=== PATIENT | male | born 1935 | race Caucasian/White ===

== ENCOUNTER 2016-10-12 07:53 | Day surgery (SDC) | payer OTHER ==
[~2016-10-12 07:53] MED LIST: ACETAMINOPHEN500 MG PO; ASPIRIN EC81 MG; ATORVASTATIN CA40 MG PO; CALCIUM 600 PO; CALCIUM600 M3; CENTRUM SILVER PO; HYCET1 ML PO; LEVETIRACETAM500 MG PO; LIPITOR20 MG PO; MULTIPLE VITAMIN PO; PEPCID40 MG PO
--- NOTE | 2016-10-12 10:18 | Provider's Discharge Care Plan ---
Problem, Goal, Plan Problem List 1. S/P RE-EXCISION BASAL CELL CA OF SCALP Goals: Improve disease control, Therapeutic intervention Instructions: Follow up as directed, Take meds as directed
--- NOTE | 2016-10-12 10:56 | OPERATIVE REPORT ---
DATE OF SURGERY: 10/12/2016 SURGEON: Yadiel Coronado III, MD [employer] SUPERVISOR: None. PREOPERATIVE DIAGNOSIS: 1. Incompletely excised basal cell carcinoma of the scalp POSTOPERATIVE DIAGNOSIS: 1. Incompletely excised basal cell carcinoma of the scalp PROCEDURE PERFORMED: 1. Excisional biopsy previously biopsied site, 3.5 x 0.75 cm full-thickness to subcutaneous fat ANESTHESIA: TIVA, local 1% Xylocaine with epinephrine. INDICATIONS: An 81-year-old male status post excisional biopsy of a scalp lesion , biopsy-proven basal cell carcinoma, the tumor present at the inking peripheral margins, scheduled for reexcision. SURGICAL FINDINGS: Scar tissue previous incisional site. SURGICAL TECHNIQUE: The patient was brought to the operating room and placed in the semi-recumbent position where he was administered TIVA and monitored closely by anesthesia. The area of his previous biopsy site was once again identified. The head was shaved in a circumferential region around the previously biopsied site. This site was then prepped using Betadine and draped in a sterile fashion. A site was infiltrated using local anesthetic. An elliptical incision made measuring approximately 3.5 x 0.75 cm down to subcutaneous tissue. The lesion was excised, handed off the field. The flap edges were undermined and approximated using 4-0 interrupted nylon suture. Bacitracin and Neosporin ointment was placed over the wound. A sterile occlusive dressing placed. The patient tolerated the procedure well and was transferred to the recovery room in stable condition. There were no intraoperative or anesthetic complications.
== END 2016-10-12 12:04 | disposition home or self-care (01) ==
LOC: OR SRH 07:53 → SCU SRH 07:59 → OR SRH 09:13
PROVIDERS: Specialist
PROC: 0HB0XZX Excision of Scalp Skin, External Approach, Diagnostic (ICD-10-PCS; principal; 2016-10-12 09:45)
PROC: 0JQ00ZZ Repair Scalp Subcutaneous Tissue and Fascia, Open Approach (ICD-10-PCS; principal; 2016-10-12 09:45)
DX: C44.41 Basal cell carcinoma of skin of scalp and neck (principal); J44.9 Chronic obstructive pulmonary disease, unspecified; Z72.0 Tobacco use; L57.0 Actinic keratosis
CPT/HCPCS: 29229; 29240; 50004; 60001; 80182; 84038